=== PATIENT | male | born 1955 | race Caucasian/White ===

== ENCOUNTER 2016-06-04 08:40 | Inpatient (IN) | payer OTHER ==
[~2016-06-04] VITALS: Ht 177.8 cm; Wt 96.2 kg
[2016-06-04] VITALS (11 sets, daily range): BP systolic 100–133; BP diastolic 53–87
[2016-06-04] MEDS ORDERED: TRAZODONE HCL300 MG ORAL (08:53)
[2016-06-04] MEDS ORDERED: ZYPREXA7.5 MG ORAL (08:53)
[2016-06-04 10:25] LABS: EOSINOPHILS % (AUTO) 0.3 % (0.0-3.0); LYMPHOCYTES % (AUTO) 15.2 % (20.0-45.0); MEAN CORPUSCULAR HEMOGLOBIN 30.1 PG (27.0-31.0); MEAN CORPUSCULAR HGB CONC 33.3 G/DL (32.0-36.0); MEAN CORPUSCULAR VOLUME 90 FL (80-99); MEAN PLATELET VOLUME 7.2 FL (6.5-10.1); MONOCYTES % (AUTO) 6.2 % (1.0-10.0); NEUTROPHILS % (AUTO) 77.4 % (45.0-75.0); PLATELET COUNT 224 K/UL (150-450); RED BLOOD COUNT 4.84 M/UL (4.70-6.10); RED CELL DISTRIBUTION WIDTH 12.1 % (11.6-14.8); WHITE BLOOD COUNT 17.8 K/UL (4.8-10.8)
[2016-06-04 10:37] LABS: ALANINE AMINOTRANSFERASE 39 U/L (3-41); ALBUMIN/GLOBULIN RATIO 0.9 (1.0-2.7); ANION GAP 18 (5-15); ASPARTATE AMINO TRANSFERASE 28 U/L (5-40); CALCIUM 9.1 mg/dL (8.6-10.2); CARBON DIOXIDE 23 mEQ/L (20-30); CHLORIDE 93 mEQ/L (98-107); CREATININE 0.9 mg/dL (0.7-1.2); GLOMERULAR FILTRATION RATE > 60 mL/min (>60); HEMOLYSIS 19; POTASSIUM 4.2 mEQ/L (3.4-4.9); SODIUM 134 mEQ/L (135-145); TOTAL PROTEIN 8.6 g/dL (6.6-8.7)
[2016-06-04 10:38] LABS: TROPONIN I < 0.30 ng/mL (<=0.30)
[2016-06-04] MEDS ORDERED: Meropenem 1gm vial ONE (10:43)
[2016-06-04] MEDS ORDERED: Dexamethasone 4mg/ml vial ONE (10:44)
[2016-06-04] MEDS ORDERED: Dexamethasone 20mg/5ml IVP ONE (10:45)
[2016-06-04] MEDS ORDERED: Meropenem 2 GM in NS 110 ML IVPB ONE (10:45)
[2016-06-04] MEDS ORDERED: Vancomycin 1.5gm/D5W 300ml 325 ML IVPB ONE (10:45)
--- NOTE | 2016-06-04 11:10 | Emergency Room Report ---
History of Present Illness General Chief Complaint: Skin Rash/Abscess Source: Patient Present Illness HPI 60 YO M walk-in patient presented with "they wouldnt let me ride the bus because they said I have leprosy." Patient to me endorsing "I'm here because I' m schizophrenic." Denies any new medication or antibiotic. States obvious rash to knees "started today." At this point when I saw the rash I left the room, closed the door, put patient on droplet precaution for suspected meningiococcemia. I called Dr Horne who came to see patient, agrees with concern for meningiococcemia vs vasculitis. She advised PPx for all exposed staff with Cipro, which we did. Patient placed on Droplet precations in Trauma room. Allergies: Uncoded Allergies: 1 ST GENERATION PSYCH MEDS (Allergy, Unknown, 06/04/16) Patient History Past Medical History: psych hx Past Surgical History: none Pertinent Family History: none Social History: Denies: alcohol use, drug use, smoking Immunizations: UTD Reviewed Nursing Documentation: PMH: Agreed, PSxH: Agreed Nursing Documentation-PMH Past Medical History Deferred: Pt Cognitively Impaired Past Medical History: No History, Except For Hx Cardiac Problems: No Hx Hypertension: No Hx Pacemaker: No Hx Asthma: No Hx COPD: No Hx Gastrointestinal Problems: Yes - HEP C History Of Psychiatric Problem: Yes - schizophrenia Review of Systems All Other Systems: negative except mentioned in HPI - ?Schizophrenia vs AMS from infection Physical Exam Vital Signs Date Time Temp Pulse Resp B/P Pulse Ox O2 Delivery O2 Flow Rate FiO2 06/04/16 08:45 98.4 94 16 152/93 100 Room Air Sp02 EP Interpretation: reviewed, normal General Appearance: normal inspection, well appearing, no apparent distress, alert, GCS 15, non-toxic Head: normocephalic, atraumatic Eyes: bilateral eye EOMI, bilateral eye PERRL ENT: normal ENT inspection, hearing grossly normal, normal voice Neck: normal inspection, full range of motion, supple, no meningismus, no bony tend Respiratory: normal inspection, lungs clear, normal breath sounds, no rhonchi, no respiratory distress, no retraction, no accessory muscle use, no wheezing Cardiovascular #1: regular rate, rhythm, no edema Gastrointestinal: normal inspection, normal bowel sounds, non tender, soft, no guarding, no hernia Genitourinary: no CVA tenderness Musculoskeletal: normal inspection, back normal, normal range of motion, Lacy' s Sign negative Neurologic: normal inspection, alert, oriented x3, responsive, pool coordinator III-XII nml as tested, motor strength/tone normal, speech normal Psychiatric: normal inspection, judgement/insight normal, mood/affect normal Skin: normal inspection, other - Bilateral red erythematous rash, confluent over bilateral knees with petechiea seen at borders of confluence in lower extremities and mid-thigh. Lymphatic: normal inspection Procedures Critical Care Time Critical Care Time CC time 60 minutes Care for a 60 YO M with ?AMS, psych history with bilateral lower extremity rash concerning for meningiococcemia vs vasculitis DDx includes sepsis, vasculitis, rash Patient is oriented X3. No meningismus Comprehensive physical exam completed, atraumatic. Unreliable history from patient. Labs include CBC and chem panel, EKG 12 lead and constant cardiac rhythm strip monitoring, IV established, empiric decadrom and IV Abx to cover meningitis Cx placed to Dr Horne of ID, agrees for Airborne isolation, LP, tx, ICU Cx Placed to Dr Acuna Neurology Patient endorsed to Dr Chavez for ICU admission Airway adequately maintained by patient upon arrival. EKG reveals NSR without QRS abnormalities. Physician spent 60 minutes of direct critical care time monitoring patient's respiratory, cardiac and neurological status, reassessment, review of imaging, labs and discussion with attending hospitalist and consultants Does not include procedures Lumbar Puncture Consent: Emergent Location: L3-L4 Anesthesia: 1% Lidocaine Prep: bedadine Needle Size: 1 1/2 CSF: clear Post-Procedure: recumbent position Attempts: One Complications: none Patient Tolerated: Well Medical Decision Making Diagnostic Impression: Primary Impression: Rash and other nonspecific skin eruption ER Course 60 YO M with lower extremity rash of unknown duration. Alert and oriented. No focal neuro deficits. No need for CT at this point, no concern for IC mass, CVA ID shares concern for ?meningiococcemia vs vasculitis vs skin rash Empiric ABx, decadron given LP done in ED, pending results Labs: Leuks 18k. CXR negative for PNA ID and Neuro Cx placed to Dr Mohr Endorsed to Dr Chavez for ICU admission at 1227pm. EKG Diagnostic Results Rate: normal Rhythm: NSR ST Segments: no acute changes ASA given to the pt in ED: No Rhythm Strip Diag. Results EP Interpretation: yes Rate: 74 Rhythm: NSR, no PVC's, no ectopy Chest X-Ray Diagnostic Results EP Interpretation: Yes Findings: no consolidation, no effusion, no pneumothorax, no acute cardiopulmonary disease Number of Views: 1 Last Vital Signs Date Time Temp Pulse Resp B/P Pulse Ox O2 Delivery O2 Flow Rate FiO2 06/04/16 08:45 98.4 94 16 152/93 100 Room Air Status: improved Reevaluation Impression Endorsed to Dr Chavez at 1157am. Disposition: ADMITTED INPATIENT Condition: Critical Referrals: NOT CHOSEN IPA/,REFERRING (PCP) YONATAN SUE M.D. Jun 04, 2016 11:10
--- NOTE | 2016-06-04 11:54 | Diagnostic Imaging Report ---
Indication: Chest pain Technique: Single portable AP view of the chest. Findings: Comparison: None. The bones and extra pulmonary soft tissues, cardiomediastinal silhouette, pulmonary vasculature and parenchyma, and pleural surfaces are unremarkable. IMPRESSION: Negative portable AP chest.
[2016-06-04] MEDS ORDERED: LORazepam Inj 2mg/ml 1ml IV ONE (12:00)
[2016-06-04 13:12] LABS: GLUCOSE,CSF 70 mg/dL (50-80)
[2016-06-04 13:47] LABS: APPEARANCE,CSF CLEAR; COLOR,CSF COLORLESS
[2016-06-04 13:50] LABS: LYMPHOCYTES,CSF 1 %; WHITE BLOOD CELL,CSF 3 /CU MM (0-5)
[2016-06-04] MEDS ORDERED: Vancomycin 1250mg/D5W 250ml IVPB SCH ×2 (14:00)
--- NOTE | 2016-06-04 14:55 | History & Physical ---
History and Physical History & Physicial HP dictated # [id number] MEGA MCCOLLUM Jun 04, 2016 14:55
[2016-06-04] MEDS ORDERED: ZyPREXA Zydis 5mg tab ORAL PRN (15:00)
[2016-06-04] MEDS ORDERED: Dexamethasone 4mg/ml vial IVP SCH (18:00)
[2016-06-04] MEDS ORDERED: TraZODone 100mg tab ORAL SCH (21:00)
[2016-06-04] MEDS ORDERED: Heparin 5000 units/ml inj SUBQ SCH (21:00)
[2016-06-04] MEDS ORDERED: TraZODone 100mg tab ORAL PRN (21:00)
--- NOTE | 2016-06-04 22:07 | Consultation ---
DATE OF CONSULTATION: 06/04/2016 INFECTIOUS DISEASE CONSULTATION CONSULTING PHYSICIAN: Clarence Horne M.D. REFERRING PHYSICIAN: Jason Dalton M.D. REASON FOR CONSULTATION: Possible meningococcal meningitis. HISTORY OF PRESENTING ILLNESS: This is a 60-year-old gentleman with history of schizophrenia and hepatitis C, who came in with altered mental status and a rash on his legs. An Infectious Diseases consultation has been obtained for possible meningococcal meningitis. PAST MEDICAL HISTORY: 1. History of hepatitis C. 2. History of schizophrenia. MEDICATIONS: In the emergency room, he has received vancomycin, meropenem, and Decadron. ALLERGIES: To first generation psychotropic medication. SOCIAL HISTORY: He states he does not smoke, drink, or use drugs. FAMILY HISTORY: Unknown. REVIEW OF SYSTEMS: Respiratory: No fever, chills, cough, shortness of breath, or chest pain. Cardiac: No chest pain. No palpitations. No dizziness. No syncope. Gastrointestinal: He says he does have some nausea and he feels like vomiting. No abdominal pain. He did have some diarrhea. Musculoskeletal: He says he does have some headache. He does complain of some neck pain. Neurologic: He recalls that it is June 04, but does not recall the year. He thinks the year might be whatever it is. He knows he is at [facility]. PHYSICAL EXAMINATION: VITAL SIGNS: Temperature of 98.4 degrees, pulse of 94, respiratory rate of 16, blood pressure 152/93, and O2 saturation of 100%. HEENT: Pupils are equally reactive to light and accommodation. NECK: Stiffness noted. No adenopathy. No JVD. CARDIOVASCULAR: Regular rate and rhythm. No murmurs. LUNGS: Clear to auscultation bilaterally. No crackles. No wheezes. ABDOMEN: Soft and nontender. No organomegaly. EXTREMITIES: No cyanosis. No clubbing. Edema noted bilaterally. Erythematous rash noted which is an ecchymosis over the knee, but also petechiae over his lower leg and thigh. LABORATORY DATA: White count of 17.8, hemoglobin 14.6, hematocrit 43.8, MCV 90, and platelet count of 224,000 with neutrophils of 77%. Sodium 134, potassium 4.2, chloride 93, bicarbonate 23, BUN 13, creatinine 0.9, glucose of 130, and calcium 9.1. Total bilirubin 0.9. AST 28, ALT 39, and alkaline phosphatase 84. CK of 270. CK-MB 5. Troponin less than 0.3. Total protein 8.6. Albumin 4.1. Blood cultures are pending. ASSESSMENT: 1. This is a 60-year-old gentleman with history of schizophrenia and hepatitis C, who comes in with altered mental status and a rash on his body. Would be concerned regarding meningococcal meningitis. 2. We would also be concerned regarding vasculitis and we would also be concerned regarding an allergic reaction. PLAN: 1. Discussed with the ER physician, Dr. Dalton. We would recommend a lumbar puncture. 2. We would recommend starting the patient on IV vancomycin, meropenem ,and Decadron. 3. Discussed with pharmacy to prophylax all ER staff as well as the paramedics, who was in contact with this patient with Cipro 500 mg one dose. 4. Admit the patient to ICU with respiratory isolation. 5. We would also recommend a Neurology evaluation. I would like to thank, Dr. Jason Dalton, for this consultation. Clarence Horne M.D. DR: EDD JOB#: [id number] CC: Jason Dalton M.D.
[2016-06-04] MEDS ORDERED: Vancomycin 1.5 GM in D5W 300 ML IVPB SCH (23:00)
[2016-06-04] MEDS ORDERED: Vancomycin 1gm/D5W 250ml IVPB SCH ×2 (23:00)
[2016-06-05] VITALS (7 sets, daily range): BP systolic 89–120; BP diastolic 53–67
--- NOTE | 2016-06-05 00:17 | History and Physical Report ---
DATE OF ADMISSION: 06/04/2016 CHIEF COMPLAINT: The patient walked in with altered mental status. HISTORY OF PRESENT ILLNESS: This is a 60-year-old white male, who was seen in the emergency room after he walked in and apparently, he told the ER that they would not let me ride the bus because they said I have leprosy. The patient has a history of schizophrenia. He was then noticed to have a rash over the lower extremity. When asked in the ER if he had any stiff neck, he said yes and fevers, he said yes, so there is a suspicion that the patient may have meningitis. The patient was put on isolation and was given IV antibiotics. Dr. Marcelino saw him in the ER for ID and LP was ordered and however, the LP came back negative. Treatment was given to all who exposed with Cipro in the ER. The patient is still a poor historian and confused, however, he is able to answer some of the questions appropriately. PAST MEDICAL HISTORY: As mentioned, the patient has a history of schizophrenia. Otherwise, he denies any history of diabetes or hypertension. There is also recorded history of hepatitis C. MEDICATIONS: The patient is on trazodone and possibly other medications at home. ALLERGIES: No known drug allergies. SOCIAL HISTORY: The patient denies history of smoking or alcohol abuse. The patient says that he lives in a [place]. REVIEW OF SYSTEMS: Noncontributory. PHYSICAL EXAM: GENERAL: This is a 60-year-old male, in no acute distress. VITAL SIGNS: Blood pressure is 160/69, pulse 77, temperature 98.4 degrees, and respiratory rate 16. HEENT: Joaquin conjunctivae. Anicteric sclerae. NECK: Supple. LUNGS: Clear to auscultation. HEART: S1 and S2 without murmurs or rubs. ABDOMEN: Soft and nontender. EXTREMITIES: The patient has well demarcated rash over the lower extremities up to [id number], macular papular in nature, which could be cellulitis. ASSESSMENT: This is a 60-year-old male, who was admitted with rash over the lower extremities and change in mental status. Meningitis was already ruled out. The patient likely has cellulitis, vasculitis needs to be ruled out. PLAN: The patient will be on IV antibiotics, p.r.n. Tylenol, and IV fluids. ID data management consultant will follow the patient. Also, we will get psychiatrist to see the patient. Ed Chavez M.D. DR: RAMÍREZ JOB#: [id number] CC:
[2016-06-05] MEDS: Dexamethasone 4mg/ml vial IVP SCH ×5 (00:25→23:35)
[2016-06-05] MEDS: Vancomycin 1.5 GM in D5W 325 ML IVPB SCH ×3 (00:25→23:36)
[2016-06-05] MEDS: TraZODone 100mg tab ORAL PRN ×2 (02:51→21:44)
[2016-06-05 07:49] LABS: MEAN CORPUSCULAR HEMOGLOBIN 30.7 PG (27.0-31.0); MEAN CORPUSCULAR HGB CONC 34.2 G/DL (32.0-36.0); MEAN CORPUSCULAR VOLUME 90 FL (80-99); MEAN PLATELET VOLUME 7.2 FL (6.5-10.1); PLATELET COUNT 202 K/UL (150-450); RED BLOOD COUNT 4.37 M/UL (4.70-6.10); RED CELL DISTRIBUTION WIDTH 11.8 % (11.6-14.8); WHITE BLOOD COUNT 18.4 K/UL (4.8-10.8)
--- NOTE | 2016-06-05 08:08 | Consultation ---
DATE OF CONSULTATION: 06/04/2016 NEUROLOGICAL CONSULTATION CONSULTING PHYSICIAN: Pravin Sykes M.D. REQUESTING PHYSICIAN: Ed Chavez M.D. HISTORY OF PRESENT ILLNESS: This is a 60-year-old man seen in neurological consultation to evaluate acute onset of disseminated rash. The patient informs me that last night he was far away from his board and care facility and was looking how to get there. Meanwhile, he went to sleep on a cement floor for a couple of hours. Upon awakening, he tried to board a bus, but they would not let him stating that he might have " ". The patient feels that he had some kind of allergies. Paramedics arrived to the scene. He was sitting, he was comfortable. His vital signs were stable with blood pressure 150/80. He was brought to this hospital with vital signs remaining stable. He was afebrile. Pulse ox was 100%. The patient had bilateral lower extremity erythematous rash affecting both lower extremities, but confluent around both knees with petechial rash up to the groin region and some petechial rash around in the mid abdominal region. The patient continues to feel comfortable. ID assessment was obtained, suspected to have meningococcal rash, prophylactic or airborne. A consideration was made with the personnel receiving Cipro and the patient is being isolated. Spinal tap was obtained. This revealed, on preliminary data, CSF sugar of 70, slightly elevated protein, cell count still pending. Chemistry panel was obtained revealing CK of 70 and glucose 130. Anion gap of 18 and sodium 134. CBC study is unremarkable except WBC 17.8. Imaging studies limited to chest x-ray revealed negative study and no acute abnormalities noted. The patient remains afebrile, coherent, with no obvious meningeal symptomatology, currently transferred to intensive care unit and stat neuro consult was requested. PAST MEDICAL HISTORY: The patient has a history of schizoaffective disorder. He had previous hospitalizations. He has a history of hepatitis C, for which he had treatment at [facility]. He denies any other medical issues. He is not on any medication except Zyprexa 7.5 mg daily and trazodone 300 mg at bedtime. ALLERGIES: The patient has allergies to psychiatric medications. FAMILY HISTORY: Noncontributory. SOCIAL HISTORY: Resident of a board and care facility, stating that he walks every day few miles around. He denies alcohol or drug abuse. Nonsmoker. REVIEW OF SYSTEMS: At this time, the patient feels fairly well. There is slight discomfort in both knees. Denies headache or dizziness. Denies visual or hearing abnormalities. No chest pain. No palpitation. No respiratory problems. No abdominal pain or discomfort. No urine or bowel incontinence. PHYSICAL EXAMINATION: GENERAL: This is a well-developed and well-nourished man, not in acute distress, lying comfortably in bed. Listening to his radio. VITAL SIGNS: Now stable. His blood pressure is 116/69, temperature 98.4, and heart rate of 74. HEENT: Head is normocephalic. There is no evidence of trauma. NECK: Supple. There is slight limitation on range of motion on head bending forward. Negative Kernig sign. EXTREMITIES: Upper and lower extremities without clubbing, cyanosis, or edema. There is a petechial, erythematous rash from lower parts of the lower extremities up to the groin region with confluent areas, both knees. redness, both knees hot on palpation. There is slight petechial rash in the mid abdomen area bilaterally. Peripheral pulses, 1+ symmetric. NEUROLOGIC: MENTAL STATUS: He is alert and oriented x3. His speech is fluent. Language intact. Emotionally inappropriate. At times somewhat incoherent, but fully awake, comfortable, communicating properly. CRANIAL NERVE II: Pupils both responding to light and accommodation. Extraocular movement intact. No nystagmus. CRANIAL NERVE V: Normal corneal responses. CRANIAL NERVE VII: No facial asymmetry. CRANIAL NERVE VIII: Normal hearing. CRANIAL NERVES IX THROUGH XII: Tongue is in midline. Symmetric palate elevation. MOTOR EXAMINATION: Revealed normal muscle tone. Strength 5/5 in all extremities. Able to lift both lower extremities against the gravity. There is slight limitation in knee flexion and extension due to discomfort. Deep tendon reflexes, 1+ symmetric. Plantar response is flexor. No pathological responses. SENSORY EXAMINATION: Withdrawing to pin stimulation in both arms and legs. Gait not tested, but reportedly able to ambulate without assistance. IMPRESSION: 1. This is a 60-year-old man with acute onset of disseminated confluent, petechial rash of unknown etiology, rule out an allergic reaction. Rule out a meningococcal infection. Rule out acute vasculitis. 2. History of hepatitis C. 3. Chronic psychiatric disorder. RECOMMENDATION: The patient was started on Decadron/antibiotic to cover possible meningococcal infection. I will obtain laboratory studies for collagen vascular disease, vasculitis. I will review CSF study. The patient to remain in intensive care unit for close monitoring. Thank you for allowing me to see this interesting patient in neurological consultation. Pravin Nancy Sykes DR: KYRA JOB#: [id number] CC:
[2016-06-05 08:29] LABS: ANION GAP 20 (5-15); CALCIUM 8.9 mg/dL (8.6-10.2); CARBON DIOXIDE 21 mEQ/L (20-30); CHLORIDE 98 mEQ/L (98-107); CREATININE 0.7 mg/dL (0.7-1.2); GLOMERULAR FILTRATION RATE > 60 mL/min (>60); HEMOLYSIS 3; MAGNESIUM 2.2 mg/dL (1.7-2.5); POTASSIUM 4.4 mEQ/L (3.4-4.9); SODIUM 139 mEQ/L (135-145)
[2016-06-05] MEDS ORDERED: ZyPREXA Zydis 5mg tab ORAL PRN (09:00)
[2016-06-05 09:24] LABS: BAND NEUTROPHILS % (MANUAL) 0 % (0-8); BASOPHILS % (MANUAL) 0 % (0-2); EOSINOPHILS % (MANUAL) 0 % (0-3); LYMPHOCYTES % (MANUAL) 6 % (20-45); NEUTROPHILS % (MANUAL) 91 % (45-75); PLATELET ESTIMATE ADEQUATE; PLATELET MORPHOLOGY NORMAL; TOTAL CELLS COUNTED 100
--- NOTE | 2016-06-05 09:52 | Infectious Diseases Prog Note ---
Assessment/Plan Assessment/Plan A: Rash', Cellulitis Doubt Meningitis AMS improved Schizophrenia, paranoid HEP C P: Continue Vancomycin & Acyclovir Subjective ROS Limited/Unobtainable: Yes Constitutional: Reports: no symptoms Respiratory: Reports: no symptoms Gastrointestinal/Abdominal: Reports: no symptoms Allergies: Uncoded Allergies: 1 ST GENERATION PSYCH MEDS (Allergy, Unknown, 06/04/16) Objective Vital Signs Last 24 Hour Vital Signs Date Time Temp Pulse Resp B/P Pulse Ox O2 Delivery O2 Flow Rate FiO2 06/05/16 04:00 98.1 64 18 93/53 95 Room Air 06/05/16 00:00 97.9 86 22 89/55 94 Room Air 06/04/16 22:03 97.7 70 20 100/53 94 Room Air 06/04/16 21:00 78 15 114/62 100 Room Air 06/04/16 20:00 97.9 85 16 120/65 100 Room Air 06/04/16 19:00 82 15 107/64 99 Room Air 06/04/16 18:00 74 16 106/59 99 Room Air 06/04/16 17:00 72 16 112/61 97 Room Air 06/04/16 16:00 98.0 73 16 111/58 99 Room Air 06/04/16 16:00 77 06/04/16 15:00 75 15 102/62 100 Room Air 06/04/16 14:00 98.2 74 15 106/78 100 Room Air 06/04/16 13:20 74 16 116/69 100 Venturi Mask 06/04/16 13:20 77 06/04/16 11:58 98.4 80 16 133/87 100 Venturi Mask Height (Feet): 5 Height (Inches): 10.00 Weight (Pounds): 212 General Appearance: no acute distress HEENT: mucous membranes moist Respiratory/Chest: lungs clear Cardiovascular: normal rate Abdomen: soft, non tender Extremities: no edema Skin: rash, other - on knees, abdomen Neurologic/Psychiatric: alert, responsive, other Microbiology Date/Time Source Procedure Growth Status 06/04/16 12:20 Cerebral Spinal Fluid Gram Stain - Final Resulted 06/04/16 12:20 Cerebral Spinal Fluid CSF Culture Pending Resulted Laboratory Tests Test 06/04/16 12:20 06/05/16 04:30 CSF Appearance Clear CSF Color Colorless CSF WBC 3 /CU MM (0-5) CSF RBC 315 /CU MM CSF Neutrophils % 2 % CSF Lymphocytes % 1 % CSF Monocytes % 0 % CSF Crenated Cells 0 % CSF Glucose 70 mg/dL (50-80) CSF Total Protein 54 mg/dL (15-45) H White Blood Count 18.4 K/UL (4.8-10.8) H Red Blood Count 4.37 M/UL (4.70-6.10) L Hemoglobin 13.4 G/DL (14.2-18.0) L Hematocrit 39.3 % (42.0-52.0) L Mean Corpuscular Volume 90 FL (80-99) Mean Corpuscular Hemoglobin 30.7 PG (27.0-31.0) Mean Corpuscular Hemoglobin Concent 34.2 G/DL (32.0-36.0) Red Cell Distribution Width 11.8 % (11.6-14.8) Platelet Count 202 K/UL (150-450) Mean Platelet Volume 7.2 FL (6.5-10.1) Neutrophils (%) (Auto) % (45.0-75.0) Lymphocytes (%) (Auto) % (20.0-45.0) Monocytes (%) (Auto) % (1.0-10.0) Eosinophils (%) (Auto) % (0.0-3.0) Basophils (%) (Auto) % (0.0-2.0) Differential Total Cells Counted 100 Neutrophils % (Manual) 91 % (45-75) H Lymphocytes % (Manual) 6 % (20-45) L Monocytes % (Manual) 3 % (1-10) Eosinophils % (Manual) 0 % (0-3) Basophils % (Manual) 0 % (0-2) Band Neutrophils 0 % (0-8) Platelet Estimate Adequate Platelet Morphology Normal Red Blood Cell Morphology Normal Erythrocyte Sedimentation Rate 63 MM/HR (0-20) H Sodium Level 139 mEQ/L (135-145) Potassium Level 4.4 mEQ/L (3.4-4.9) Chloride Level 98 mEQ/L (98-107) Carbon Dioxide Level 21 mEQ/L (20-30) Anion Gap 20 (5-15) H Blood Urea Nitrogen 12 mg/dL (7-23) Creatinine 0.7 mg/dL (0.7-1.2) Estimat Glomerular Filtration Rate > 60 mL/min (>60) Glucose Level 118 mg/dL (74-106) H Calcium Level 8.9 mg/dL (8.6-10.2) Phosphorus Level 3.0 mg/dL (2.5-4.8) Magnesium Level 2.2 mg/dL (1.7-2.5) C-Reactive Protein, Quantitative 6.3 mg/dL (< 0.5) H Immunoglobulin E Pending Rheumatoid Factor Screen Pending Anti-Nuclear Antibody Screen Pending c-ANCA Titer Pending p-ANCA Titer Pending Complement C3 Pending Complement C4 Pending Rapid Plasma Reagin Pending Herpes Simplex Virus I IgG Antibody Pending Herpes Simplex Virus I IgM Ab (IFA) Pending Herpes Simplex Virus II IgG Ab Pending Herpes Simplex Virus II IgM Ab (IFA Pending Current Medications Medications (Trade) Dose Ordered Sig/Jorgito Route PRN Reason Start Time Stop Time Status Last Admin Dose Admin Acetaminophen (Tylenol) 650 mg Q4H PRN ORAL Mild Pain (Pain Scale 1-3) 06/04/16 22:45 07/04/16 22:44 Acyclovir 1000 mg/ Dextrose 250 ml @ 250 mls/hr Q8HR IV 06/05/16 06:00 07/05/16 05:59 06/05/16 05:39 Dexamethasone Sodium Phosphate (Decadron 4mg/ml vial) 4 mg Q6HR IVP 06/05/16 00:00 07/05/16 00:00 06/05/16 05:39 Dextrose (Dextrose 50%) STAT PRN IV Hypoglycemia 06/05/16 14:45 07/05/16 14:44 Heparin Sodium (Porcine) (Heparin 5000 units/ml) 5,000 units EVERY 12 HOURS SUBQ 06/05/16 09:00 07/05/16 08:59 Olanzapine (ZyPREXA Zydis) 5 mg DAILY PRN ORAL Agitation 06/05/16 09:00 07/05/16 08:59 Sodium Chloride 1,000 ml @ 75 mls/hr [id number] IVLG 06/04/16 22:00 07/04/16 21:59 06/04/16 22:15 Trazodone HCl (Desyrel) 100 mg BEDTIME PRN ORAL insomnia 06/05/16 02:25 07/05/16 02:24 06/05/16 02:51 Vancomycin HCl (Vanco rx to dose) 1 ea DAILY PRN MISC Per rx protocol 06/05/16 09:00 07/05/16 08:59 Vancomycin HCl/ Dextrose (Vancomycin/D5W 250ml) 325 ml @ 162.5 mls/ hr Q12HR@0000,1200 IVPB 06/05/16 00:00 06/08/16 00:00 06/05/16 00:25 RHIANNA MCCOLLUM Jun 05, 2016 09:52
[2016-06-05] MEDS: Heparin 5000 units/ml inj SUBQ SCH ×2 (10:10→21:47)
--- NOTE | 2016-06-05 15:10 | General Progress Note ---
Assessment/Plan Problem List: (1) Encephalopathy due to infection ICD Codes: G93.49 - Other encephalopathy; B99.9 - Unspecified infectious disease SNOMED: 07446287, 03704005 (2) Cellulitis ICD Codes: L03.90 - Cellulitis, unspecified SNOMED: 380858675 (3) Schizophrenia ICD Codes: F20.9 - Schizophrenia, unspecified SNOMED: 38401127 Assessment/Plan Abxs psych consult Discussed with Rheumatology Subjective Allergies: Uncoded Allergies: [facility] (Allergy, Unknown, 06/04/16) Subjective feels ok Objective Last 24 Hour Vital Signs Date Time Temp Pulse Resp B/P Pulse Ox O2 Delivery O2 Flow Rate FiO2 06/05/16 12:00 97.6 72 20 102/64 97 06/05/16 08:00 97.1 75 20 108/60 97 Room Air 75 06/05/16 04:00 98.1 64 18 93/53 95 Room Air 06/05/16 00:00 97.9 86 22 89/55 94 Room Air 06/04/16 22:03 97.7 70 20 100/53 94 Room Air 06/04/16 21:00 78 15 114/62 100 Room Air 06/04/16 20:00 97.9 85 16 120/65 100 Room Air 06/04/16 19:00 82 15 107/64 99 Room Air 06/04/16 18:00 74 16 106/59 99 Room Air 06/04/16 17:00 72 16 112/61 97 Room Air 06/04/16 16:00 98.0 73 16 111/58 99 Room Air 06/04/16 16:00 77 Intake and Output 06/04/16 06/05/16 19:00 07:00 Intake Total 415 ml 820 ml Output Total 1000 ml 6200 ml Balance -585 ml -5380 ml Intake Oral 190 ml 420 ml IV Total 225 ml 400 ml Output Urine Total 1000 ml 6200 ml # Voids 2 1 Laboratory Tests 06/05/16 04:30: White Blood Count 18.4H, Red Blood Count 4.37L, Hemoglobin 13.4L, Hematocrit 39.3L, Mean Corpuscular Volume 90, Mean Corpuscular Hemoglobin 30.7, Mean Corpuscular Hemoglobin Concent 34.2, Red Cell Distribution Width 11.8, Platelet Count 202, Mean Platelet Volume 7.2, Neutrophils (%) (Auto) , Lymphocytes (%) ( Auto) , Monocytes (%) (Auto) , Eosinophils (%) (Auto) , Basophils (%) (Auto) , Differential Total Cells Counted 100, Neutrophils % (Manual) 91H, Lymphocytes % (Manual) 6L, Monocytes % (Manual) 3, Eosinophils % (Manual) 0, Basophils % ( Manual) 0, Band Neutrophils 0, Platelet Estimate Adequate, Platelet Morphology Normal, Red Blood Cell Morphology Normal, Erythrocyte Sedimentation Rate 63H, Sodium Level 139, Potassium Level 4.4, Chloride Level 98, Carbon Dioxide Level 21, Anion Gap 20H, Blood Urea Nitrogen 12, Creatinine 0.7, Estimat Glomerular Filtration Rate > 60, Glucose Level 118H, Calcium Level 8.9, Phosphorus Level 3.0, Magnesium Level 2.2, C-Reactive Protein, Quantitative 6.3H, Immunoglobulin E [Pending], Rheumatoid Factor Screen [Pending], Anti-Nuclear Antibody Screen [ Pending], c-ANCA Titer [Pending], p-ANCA Titer [Pending], Complement C3 [Pending ], Complement C4 [Pending], Rapid Plasma Reagin [Pending], Herpes Simplex Virus I IgG Antibody [Pending], Herpes Simplex Virus I IgM Ab (IFA) [Pending], Herpes Simplex Virus II IgG Ab [Pending], Herpes Simplex Virus II IgM Ab (IFA [Pending] Height (Feet): 5 Height (Inches): 10.00 Weight (Pounds): 212 Cardiovascular: normal rate Respiratory/Chest: lungs clear Edema: no edema noted Generalized Skin: other - LE redness better MEGA MCCOLLUM Jun 05, 2016 15:10
[2016-06-05] MEDS: Acyclovir 1,000 MG in NS 275 ML IV SCH (21:48)
[2016-06-06 04:00] VITALS: BP 101/68
[2016-06-06] MEDS: Dexamethasone 4mg/ml vial IVP SCH ×2 (05:52→12:12)
[2016-06-06] MEDS: Acyclovir 1,000 MG in NS 275 ML IV SCH ×2 (05:52→14:25)
[2016-06-06 08:00] VITALS: BP 109/64
[2016-06-06] MEDS: Heparin 5000 units/ml inj SUBQ SCH (08:45)
--- NOTE | 2016-06-06 11:20 | Infectious Diseases Prog Note ---
Assessment/Plan Assessment/Plan antibiotics : vancomycin iv, acyclovir A 1. ? vasculitis resolving 2. unlikely meningitis 3. schizophrenia 4. hepatitis C P 1. continue vancomycin, acyclovir 2. will follow up cultures Subjective ROS Limited/Unobtainable: Yes Allergies: Uncoded Allergies: [facility] (Allergy, Unknown, 06/04/16) Objective Vital Signs Last 24 Hour Vital Signs Date Time Temp Pulse Resp B/P Pulse Ox O2 Delivery O2 Flow Rate FiO2 06/06/16 08:00 97.7 65 19 109/64 94 Room Air 06/06/16 04:00 98.1 78 20 101/68 97 Room Air 06/05/16 23:28 97.9 66 20 112/67 97 Room Air 06/05/16 20:00 97.3 74 22 104/57 97 Room Air 06/05/16 16:00 97.7 77 20 120/59 97 Room Air 06/05/16 12:00 97.6 72 20 102/64 97 Height (Feet): 5 Height (Inches): 10.00 Weight (Pounds): 212 Respiratory/Chest: lungs clear Cardiovascular: normal rate, regular rhythm, no gallop/murmur Abdomen: soft, non tender Extremities: no edema Skin: rash - erythema decreasing Microbiology Date/Time Source Procedure Growth Status 06/04/16 09:30 Blood Blood Culture - Preliminary NO GROWTH AFTER 24 HOURS Resulted 06/04/16 09:15 Blood Blood Culture - Preliminary NO GROWTH AFTER 24 HOURS Resulted 06/04/16 12:20 Cerebral Spinal Fluid Gram Stain - Final Resulted 06/04/16 12:20 Cerebral Spinal Fluid CSF Culture - Preliminary NO GROWTH AFTER 48 HOURS Resulted 06/04/16 12:35 Nasal Not Otherwise Specified MRSA Culture - Final NO METHICILLIN RESISTANT STAPH AUREUS... Complete 06/04/16 12:35 Rectum VRE Culture - Final NO VANCOMYCIN RESISTANT ENTEROCOCCUS ... Complete Laboratory Tests Test 06/05/16 23:10 Vancomycin Level Trough 8.4 ug/mL (5.0-12.0) Current Medications Medications (Trade) Dose Ordered Sig/Jorgito Route PRN Reason Start Time Stop Time Status Last Admin Dose Admin Acetaminophen (Tylenol) 650 mg Q4H PRN ORAL Mild Pain (Pain Scale 1-3) 06/04/16 22:45 07/04/16 22:44 Acyclovir 1000 mg/ Sodium Chloride 275 ml @ 275 mls/hr Q8HR IV 06/05/16 22:00 07/05/16 21:59 06/06/16 05:52 Dexamethasone Sodium Phosphate (Decadron 4mg/ml vial) 4 mg Q6HR IVP 06/05/16 00:00 07/05/16 00:00 06/06/16 05:52 Dextrose (Dextrose 50%) STAT PRN IV Hypoglycemia 06/05/16 14:45 07/05/16 14:44 Heparin Sodium (Porcine) (Heparin 5000 units/ml) 5,000 units EVERY 12 HOURS SUBQ 06/05/16 09:00 07/05/16 08:59 06/06/16 08:45 Olanzapine (ZyPREXA Zydis) 5 mg DAILY PRN ORAL Agitation 06/05/16 09:00 07/05/16 08:59 Sodium Chloride (Sodium Chloride 1000ml bag) 1,000 ml @ 75 mls/hr [id number] IVLG 06/04/16 22:00 07/04/16 21:59 06/05/16 20:03 Trazodone HCl (Desyrel) 100 mg BEDTIME PRN ORAL insomnia 06/05/16 02:25 07/05/16 02:24 06/05/16 21:44 Vancomycin HCl 1 ea 1 ea DAILY PRN MISC Per rx protocol 06/05/16 09:00 07/05/16 08:59 Vancomycin HCl/ Dextrose (Vancomycin/D5W 250ml) 250 ml @ 167.007 mls/hr Q8H IVPB 06/06/16 00:30 06/11/16 00:29 06/06/16 10:46 LILIA OBRIEN Jun 06, 2016 11:20
[2016-06-06 12:00] VITALS: BP 109/62
[2016-06-06] MEDS ORDERED: ZYPREXA ZYDIS5 MG ORAL (14:20)
[2016-06-06] MEDS ORDERED: DESYREL100 MG ORAL (14:20)
[2016-06-06] MEDS ORDERED: DOXY 100100 MG IV (14:22)
--- NOTE | 2016-06-06 14:34 | Consultation ---
Consult Note Assessment/Plan DC dictated # [id number] MEGA MCCOLLUM Jun 06, 2016 14:34
[2016-06-06] MEDS ORDERED: DOXYCYCLINE HYC50 M1 PO (16:06)
[2016-06-06] MEDS ORDERED: Tubing IV Secondary IV ONE (16:19)
[2016-06-07 04:08] LABS: COMPLEMENT C3 126 mg/dL (82-167); COMPLEMENT C4 7 mg/dL (14-44)
--- NOTE | 2016-06-07 04:48 | Discharge Summary ---
DATE OF ADMISSION: 06/04/2016 DATE OF DISCHARGE: 06/06/2016 CHIEF COMPLAINT: The patient was found to have change in mental status and rash over lower extremities. HISTORY OF PRESENT ILLNESS: This is a 60-year-old male with history of schizophrenia was brought into the emergency room for change in mental status and confusion. The patient had a rash on his lower extremities. In the emergency room, they thought he may have meningococcal meningitis. The patient was admitted and was started on IV antibiotics. HOSPITAL COURSE: The patient was followed by ID internal audit consultant. She was worried that the patient may have some kind of vasculitis. The patient was started on IV steroids in addition to IV vancomycin, the rash improved also his mental status improved back to baseline and he was discharged back to [facility] [place] [facility]. My impression was lower extremity rash may have been a cellulitis rather than vasculitis. The patient had a LP done and this did not show any inflammatory cells or any infection. The patient may have been also altered because of the fact that the medications he was getting on his records, he was both on trazodone as well as Zyprexa. He was taking off all those medications, but was put only on p.r.n. DISCHARGE DIAGNOSES: 1. Change in mental status likely as a result of medications. 2. Cellulitis to lower extremities versus vasculitis. DISCHARGE MEDICATIONS: Please refer to discharge medication list. FOLLOWUP: The [facility] Ed Chavez M.D. DR: Carrie JOB#: [id number] CC: XAVIER
[2016-06-07 06:10] LABS: IMMUNOGLOBULIN E 56 IU/mL (0-100)
--- NOTE | 2016-06-07 15:53 | Cardiology Report ---
APPROVED REPORT EKG Measurement Heart [id number] 140P45 [id number] Normal sinus rhythm Normal ECG
[2016-06-07 17:09] LABS: ANTI-NUCLEAR ANTIBODY SCREEN Positive (Negative)
[2016-06-08 12:15] LABS: HSV 2 ANTIBODY IGG 1.27 index (0.00-0.90)
== END 2016-06-06 16:20 | DRG 603 ==
LOC: EDBD 08:40 → EMR 09:38 → ICU 11:40 → EDBEDREQ 12:06 → 4W 21:44
PROC: 009U3ZX Drainage of Spinal Canal, Percutaneous Approach, Diagnostic (ICD-10-PCS; principal; 2016-06-04)
DX: L03.116 Cellulitis of left lower limb (principal); F20.0 Paranoid schizophrenia; R41.82 Altered mental status, unspecified; L03.115 Cellulitis of right lower limb; T43.215A Adverse effect of selective serotonin and norepinephrine reuptake inhibitors, initial encounter; Y92.049 Unspecified place in boarding-house as the place of occurrence of the external cause; Z86.19 Personal history of other infectious and parasitic diseases
CPT/HCPCS: 36415; 62270; 71010; 80048; 80053; 80202; 82550; 82553; 82785; 82945; 83605; 83735; 84100; 84157; 84484; 85007; 85025; 85651; 86021; 86039; 86140; 86160; 86431; 86592; 86695; 86696; 86703; 87040; 87070; 87081; 87205; 89051; 93005